=== PATIENT | female | born 1975 | race Caucasian/White ===

== ENCOUNTER 2018-02-01 11:15 | Emergency (ER) | payer BC ==
[~2018-02-01] VITALS: Ht 172.7 cm; Wt 53.5 kg
[~2018-02-01 11:15] MED LIST: ALKA-SELTZER H1 EAC1; AMBIENCR; ANTIVERT25 MG PO; ATIVAN0.5 MG PO; BENTYL20 MG PO; CARAFATE 1 GM TA1 GM PO; CARISOPRODOL; CELEXA 20 MG TA20 MG PO; CELEXA40 MG PO; CIPROFLOXACIN500 M3 PO; CLONAZEPAM 1 MG1 M1 PO; FIORINAL 50-321 EACH PO; FLEXERIL PO; HAIR, SKIN & N1 EAC1 PO; IMPLANON; KLONOPIN0.5 MG PO; KLONOPIN1 MG PO; LITHIUM CARBON300 M3 PO; MAGIC MOUTHWASH SWISH&SPIT; NORCO 5-325 TA1 EACH PO; ONDANSETRON ODT4 MG PO; PRENATAL PO; REGLAN 10 MG TA10 MG PO; SEROQUEL200 MG PO; STRATTERA100 MG PO; SYMBYAX 6-25 M1 EACH PO; TRAMADOL 50 MG50 MG PO; TRAZODONE HCL100 MG PO; VICODIN ES TAB1 EACH PO; VISTARIL 25 MG25 M1 PO; XANAX XR1 MG PO; ZOFRAN ODT4 MG PO
[2018-02-01] MEDS ORDERED: XANAX1 MG PO (12:43)
[2018-02-01] MEDS ORDERED: SEROQUEL 50 MG50 MG PO (12:47)
[2018-02-01] MEDS ORDERED: UNISOM SLEEP AI25 MG PO (12:51)
[2018-02-01 13:04] VITALS: BP 106/71
== END 2018-02-01 13:05 | disposition home or self-care (01) ==
LOC: M.ERS 11:15
DX: F41.9 Anxiety disorder, unspecified (principal); F17.210 Nicotine dependence, cigarettes, uncomplicated; Z90.89 Acquired absence of other organs; Z90.710 Acquired absence of both cervix and uterus; Z88.1 Allergy status to other antibiotic agents; Z88.6 Allergy status to analgesic agent

== ENCOUNTER 2018-11-22 12:00 | Emergency (ER) | payer BC ==
[~2018-11-22] VITALS: Ht 170.2 cm; Wt 61.7 kg
[~2018-11-22 12:00] MED LIST changes: +SEROQUEL 50 MG50 MG PO; +UNISOM SLEEP AI25 MG PO; +XANAX1 MG PO
[2018-11-22] MEDS ORDERED: ZANTAC 150MG T150 MG PO (12:16)
[2018-11-22] MEDS ORDERED: SEROQUEL 25 MG25 M1 PO (13:06)
[2018-11-22] MEDS ORDERED: PROZAC 20 MG20 MG PO (13:08)
[2018-11-22] MEDS ORDERED: QUETIAPINE FUM100 MG PO (13:08)
[2018-11-22 13:20] VITALS: BP 139/85
== END 2018-11-22 13:21 | disposition home or self-care (01) ==
LOC: M.ERS 12:00
DX: F41.9 Anxiety disorder, unspecified (principal); Z76.0 Encounter for issue of repeat prescription; F17.210 Nicotine dependence, cigarettes, uncomplicated; K58.9 Irritable bowel syndrome, unspecified; N80.9 Endometriosis, unspecified; Z88.1 Allergy status to other antibiotic agents; Z88.6 Allergy status to analgesic agent; Z90.710 Acquired absence of both cervix and uterus